=== PATIENT | female | born 1970 | race Caucasian/White ===

== ENCOUNTER 2019-09-20 11:15 | Emergency (ER) | payer OTHER ==
[~2019-09-20] VITALS: Ht 167.6 cm; Wt 136.1 kg
[~2019-09-20 11:15] MED LIST: KEPPRA 500 MG500 M1 PO; LEVOTHYROXIN0.088 MG PO
[2019-09-20] MEDS ORDERED: FUROSEMIDE 20 M20 MG PO (11:35)
[2019-09-20] MEDS ORDERED: PROAIR HFA8.5 GM INH (11:36)
[2019-09-20] MEDS ORDERED: SYNTHROID200 MCG PO (11:41)
[2019-09-20] MEDS ORDERED: VENTOLIN HFA 1818 GM INH (11:41)
[2019-09-20 12:04] VITALS: BP 231/100
== END 2019-09-20 12:07 | disposition home or self-care (01) ==
LOC: M.ERS 11:15
DX: R60.0 Localized edema (principal); R06.02 Shortness of breath; E03.9 Hypothyroidism, unspecified; J45.909 Unspecified asthma, uncomplicated; Z76.0 Encounter for issue of repeat prescription; Z87.440 Personal history of urinary (tract) infections

== ENCOUNTER 2021-03-12 03:24 | Emergency (ER) | payer OTHER ==
[~2021-03-12] VITALS: Ht 170.2 cm; Wt 127.0 kg
[~2021-03-12 03:24] MED LIST changes: +FUROSEMIDE 20 M20 MG PO; +PROAIR HFA8.5 GM INH; +SYNTHROID200 MCG PO; +VENTOLIN HFA 1818 GM INH
[2021-03-12 04:36] VITALS: BP 142/89
== END 2021-03-12 04:37 | disposition home or self-care (01) ==
LOC: M.ERS 03:24
DX: U07.1 COVID-19 (principal); E03.9 Hypothyroidism, unspecified; E11.9 Type 2 diabetes mellitus without complications; J45.909 Unspecified asthma, uncomplicated; Z79.899 Other long term (current) drug therapy